=== PATIENT | male | born 1950 | race Caucasian/White ===

== ENCOUNTER 2018-11-14 15:33 | Emergency (ER) | payer MEDICARE ==
[2018-11-10 08:25] VITALS: Wt 83.9 kg
[~2018-11-14 15:33] MED LIST: ATOR40TA69 PO; AZIT-17 PO; CEFD300C35 PO; [UNRECOGNIZED DRUG - CODE] OD
--- NOTE | 2018-11-14 15:43 | ER Report ---
History and Physical Time Seen By MD: 15:41 HPI/ROS CHIEF COMPLAINT: Blood in urine HISTORY OF PRESENT ILLNESS: This is a 68-year-old male who presents to emergency department for blood in his urine. Patient was seen and evaluated in the emergency department 5 days ago noted to have a grossly distended bladder and pneumonia, was admitted to the hospital, had a urinary catheter placed had about 3 L of urine drained. 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 Was unsure if the color is to be expected. He denies fevers or chills. No nausea or vomiting. No rashes, no chest pain or shortness of breath. REVIEW OF SYSTEMS: Respiratory: No cough, no dyspnea. Cardiovascular: No chest pain, no palpitations. Gastrointestinal: No vomiting, no abdominal pain. Genitourinary: As above. Musculoskeletal: No back pain. Allergies: Coded Allergies: No Known Drug Allergies (Unverified , 11/14/18) Home Meds Active Scripts Cefdinir 300 Mg Cap (OMNICEF 300 MG CAP (OR EQUIV)) 300 Mg Capsule, 300 MG PO BID for 9 Days, #18 CAPSULE Prov:ENGL[place] ESTELLACHERYLE 11/11/18 Azithromycin (Z-PACK) 250 Mg Tablet, 2 TAB PO QDAY for 9 Days, #18 TAB Prov:ENGL[place] ESTELLACHERYLE 11/11/18 Reported Medications Atorvastatin Calcium (ATORVASTATIN CALCIUM) 40 Mg Tablet, 1 TAB PO QHS 11/09/18 Timolol Maleate (TIMOLOL MALEATE) 5 Ml Gia.gel, 1 GTT OD DAILY 11/09/18 Past Medical/Surgical History Patient has a past medical and surgical history of hypercholesterolemia, pneumonia, enlarged prostate, urinary retention, cervical spine fusion. Ocular hypertension and right eye. Reviewed Nurses Notes: Yes Hx Smoking: No Hx Alcohol Use: No Constitutional Vital Sign - Last 24 Hours 11/14/18 11/14/18 11/14/18 15:43 16:00 16:30 Temp 97.9 Pulse 72 68 67 Resp 18 B/P (MAP) 157/89 119/80 (93) 119/71 (87) Pulse Ox 90 87 91 O2 Delivery Room Air Physical Exam General Appearance: The patient is alert, has no immediate need for airway protection and no current signs of toxicity. Eyes: Pupils equal and round no injection. Respiratory: Chest is non tender, lungs are clear to auscultation. Cardiac: regular rate and rhythm. Gastrointestinal: Abdomen is soft and non tender, no masses, bowel sounds normal. Genitourinary: Urinary catheter draining, tom colored urine, no clots noted. No discharge around the meatus or any other concerning findings. Musculoskeletal: Neck: Neck is supple and non tender. Extremities have full range of motion and are non tender. Skin: No rashes or lesions. DIFFERENTIAL DIAGNOSIS: After history and physical exam differential diagnosis was considered for urinary retention, bladder spasm. Medical Decision Making Data Points Laboratory Hematology Test 11/14/18 00:00 Urine Color Yellow Urine Clarity Clear Urine pH 6.0 pH (4.8-9.5) Urine Specific [place] 1.004 Urine Protein 30 mg/dL (NEGATIVE) Urine Glucose (UA) Negative mg/dL (NEGATIVE) Urine Ketones Negative mg/dL (NEGATIVE) Urine Blood Large (NEGATIVE) Urine Nitrite Negative (NEGATIVE) Urine Bilirubin Negative (NEGATIVE) Urine Urobilinogen Negative mg/dL (0.2-1.9) Urine Leukocyte Esterase Trace (NEGATIVE) Urine RBC 11 /HPF (0-2/HPF) Urine WBC 3 /HPF (0-5/HPF) Urine Squamous Epithelial Cells None /LPF (NONE-FEW) Urine Bacteria Few /HPF (NONE-FEW) Urine Mucus Few /HPF (NONE-FEW) Chemistry Test 11/14/18 00:00 Urine Color Yellow Urine Clarity Clear Urine pH 6.0 pH (4.8-9.5) Urine Specific [place] 1.004 Urine Protein 30 mg/dL (NEGATIVE) Urine Glucose (UA) Negative mg/dL (NEGATIVE) Urine Ketones Negative mg/dL (NEGATIVE) Urine Blood Large (NEGATIVE) Urine Nitrite Negative (NEGATIVE) Urine Bilirubin Negative (NEGATIVE) Urine Urobilinogen Negative mg/dL (0.2-1.9) Urine Leukocyte Esterase Trace (NEGATIVE) Urine RBC 11 /HPF (0-2/HPF) Urine WBC 3 /HPF (0-5/HPF) Urine Squamous Epithelial Cells None /LPF (NONE-FEW) Urine Bacteria Few /HPF (NONE-FEW) Urine Mucus Few /HPF (NONE-FEW) Urinalysis Test 11/14/18 00:00 Urine Color Yellow Urine Clarity Clear Urine pH 6.0 pH (4.8-9.5) Urine Specific [place] 1.004 Urine Protein 30 mg/dL (NEGATIVE) Urine Glucose (UA) Negative mg/dL (NEGATIVE) Urine Ketones Negative mg/dL (NEGATIVE) Urine Blood Large (NEGATIVE) Urine Nitrite Negative (NEGATIVE) Urine Bilirubin Negative (NEGATIVE) Urine Urobilinogen Negative mg/dL (0.2-1.9) Urine Leukocyte Esterase Trace (NEGATIVE) Urine RBC 11 /HPF (0-2/HPF) Urine WBC 3 /HPF (0-5/HPF) Urine Squamous Epithelial Cells None /LPF (NONE-FEW) Urine Bacteria Few /HPF (NONE-FEW) Urine Mucus Few /HPF (NONE-FEW) ED Course/Re-evaluation ED Course Patient was admitted to a room. A history and physical were obtained. Differential diagnoses were considered. A UA was collected from the catheter, sent to the laboratory. I did consult with Dr. Marcial, who would see the patient previously, Dr. Marcial stated that the discoloration will likely continue until he follows up with urology in [place], the discoloration will likely increase with activity. I did review this with the patient. He expressed understanding and was discharged home. No concerning findings on UA. Decision to Disposition Date: November 14, 2018 Decision to Disposition Time: 16:47 Depart Departure Latest Vital Signs Vital Signs Date Time Temp Pulse Resp B/P (MAP) Pulse Ox O2 Delivery O2 Flow Rate FiO2 11/14/18 16:30 67 119/71 (87) 91 11/14/18 15:43 97.9 18 Room Air Impression: Primary Impression: Hematuria Condition: Improved Disposition: HOME OR SELF-CARE Patient Instructions: Hematuria (ED), Urinary Retention in Men (ED) Additional Instructions: Continue to monitor your urinary output, the color will likely change with activity. Be sure to schedule the follow up appointment with urology in [place] as soon as possible. Continue drinking plenty of fluids. Take the medications as prescribed. Be sure to follow up in the nearest emergency department for fevers, chills, decreased urine drainage from your catheter or large, continuous clots. Take Tylenol as needed for pain. Get plenty of rest. Return to the ED for any other concerns or worsening symptoms. Problem Qualifiers Primary Impression: Hematuria Hematuria type: unspecified type Qualified Codes: R31.9 - Hematuria, unspecified [facility]- November 14, 2018 15:43
[2018-11-14 16:30] VITALS: BP 119/71
== END 2018-11-14 16:58 | disposition home or self-care (01) ==
LOC: ER 15:50
DX: R31.9 Hematuria, unspecified (principal)
CPT/HCPCS: 81001; 99282